=== PATIENT | male | born 1950 | race Caucasian/White ===

== ENCOUNTER 2019-03-06 05:08 | Inpatient (IN) | payer OTHER ==
[2019-02-18 14:31] LABS: BASOPHILS # (AUTO) 0.1 X10'3 (0-0.2); BASOPHILS % (AUTO) 1.3 % (0-1); EOSINOPHILS # (AUTO) 0.2 X10'3 (0-0.9); EOSINOPHILS % (AUTO) 3.2 % (0-6); LYMPHOCYTES % (AUTO) 25.5 % (21-51); MEAN CORPUSCULAR HEMOGLOBIN 31.6 PG (27.0-31.0); MEAN CORPUSCULAR HGB CONC 33.5 g/dL (33.0-36.5); MEAN CORPUSCULAR VOLUME 94.1 FL (78-98); MEAN PLATELET VOLUME 8.4 FL (7.4-10.4); MONOCYTES # (AUTO) 0.5 X10'3 (0-0.9); NEUTROPHILS # (AUTO) 4.9 X10'3 (1.8-7.7); PRE OP HEMATOCRIT 38.3 % (42.0-52.0); PRE OP HEMOGLOBIN 12.9 g/dL (14.0-17.9); PRE OP PLATELET COUNT 275 X10'3 (140-440); RED BLOOD COUNT 4.07 X10'6 (4.70-6.10); RED CELL DISTRIBUTION WIDTH 14.1 % (11.5-14.5)
[2019-02-18 14:47] LABS: ALBUMIN 3.7 G/DL (3.4-5.0); ALKALINE PHOSPHATASE 86 IU/L (46-116); BLOOD UREA NITROGEN 36 MG/DL (7-18); BUN/CREATININE RATIO 22.4 (5.4-32.0); CHLORIDE 109 MMOL/L (99-107); CREATININE 1.61 MG/DL (0.60-1.10); PRE OP ALT 26 U/L (30-65); PRE OP ANION GAP 10 (8-16); PRE OP AST 24 U/L (10-37); PRE OP BILIRUB, TOTAL 0.4 MG/DL (0.0-1.0); PRE OP GLUCOSE 98 MG/DL (70-104); PRE OP POTASSIUM 5.2 MMOL/L (3.4-5.1); PRE OP SODIUM 141 MMOL/L (135-145); TOTAL CARBON DIOXIDE 22.1 MMOL/L (24-32); TOTAL PROTEIN 7.3 G/DL (6.4-8.2); eGFR 43 ML/MIN
[2019-03-06] VITALS (17 sets, daily range): BP systolic 77–141; BP diastolic 33–80
[~2019-03-06] VITALS: Ht 182.9 cm; Wt 84.9 kg
[~2019-03-06 05:08] MED LIST: BENA10TA75 PO; IBUP-1984 PO; [UNRECOGNIZED DRUG - CODE]; ringers solution, lacted 1,000 ML IV SCH
[2019-03-06] MEDS ORDERED: vancomycin inj 1,500 MG in normal saline 300ml IV soln IV ONE (05:30)
[2019-03-06] MEDS ORDERED: clindamycin-Cleocin 900mg/D5W 50 ML IV ONE (05:30)
[2019-03-06] MEDS ORDERED: famotidine 20mg tablet PO ONE (05:30)
[2019-03-06] MEDS ORDERED: tranexamic acid inj. 1,000 MG in normal saline 100 ML IV ONE (05:30)
[2019-03-06] MEDS ORDERED: ketorolac trometh. 30mg/ml inj. ONE (06:40)
[2019-03-06] MEDS ORDERED: ROPIVAcaine 0.5% (5mg/ml) 30ml vial ONE ×2 (06:40→07:21)
[2019-03-06] MEDS ORDERED: ceFAZolin 1GM/D5W- ADD-VANTAGE 50 ML IV ONE (06:45)
[2019-03-06] MEDS ORDERED: fentaNYL/PF 50MCG/1 ML 2ML syringe ONE (07:18)
[2019-03-06] MEDS ORDERED: MIDAZolam 5mg/5ml vial ONE (07:19)
[2019-03-06] MEDS ORDERED: propofol inj 20 ML IV ONE (07:19)
[2019-03-06] MEDS ORDERED: dexamethasone sod phosphate 4mg/ml inj. ONE (07:22)
[2019-03-06 07:24] LABS: PRE OP PROTIME 10.1 SECONDS (9.0-12.0)
[2019-03-06] MEDS ORDERED: sevoflurane 250ml liquid IH ONE (07:30)
[2019-03-06] MEDS ORDERED: ceFAZolin 1000mg inj ONE (08:20)
[2019-03-06] MEDS ORDERED: tranexamic acid inj. 850 MG in normal saline 100ml IV soln 100 ML IV ONE ×2 (08:40→13:15)
[2019-03-06] MEDS ORDERED: ringers solution, lacted 1,000 ML IV SCH (09:05)
[2019-03-06] MEDS ORDERED: meperidine/PF 25mg/ml syringe IV PRN ×3 (09:05)
[2019-03-06] MEDS ORDERED: proCHLORperazine 10 MG/2 ml inj IV PRN (09:05)
[2019-03-06] MEDS ORDERED: ROPIVAcaine 0.2%/PF PUMP/bolus 550 ML INTERSCALE SCH (09:05)
[2019-03-06] MEDS ORDERED: ondansetron/PF 4mg/2ml inj IV PRN ×2 (09:05→10:05)
[2019-03-06] MEDS ORDERED: ROPIVAcaine 0.2% (10 MG/5 ML) BOLUS INJECTION INTERSCALE PRN (09:05)
[2019-03-06] MEDS ORDERED: morphine 4 MG/ML inj SYRINge IV PRN ×2 (09:05)
[2019-03-06] MEDS ORDERED: ondansetron/PF 4mg/2ml inj ONE (09:29)
--- NOTE | 2019-03-06 09:52 | NUR ---
Received from OR via , accompanied by Anesthesiologist DR SHULTZ and report given by Anesthesiolgist. AWAKENS TO VOICE. VITALS STABLE. DRESSING DI. BARBARA PAIN. FINGERS WARM AND PINK. RUE IN SIMPLE SLING.
[2019-03-06] MEDS ORDERED: HYDROmorphone 1 mg/ml syringe IV PRN (10:05)
[2019-03-06] MEDS ORDERED: diphenhydrAMINE 25mg capsule PO PRN ×2 (10:05)
[2019-03-06] MEDS ORDERED: oxyCODONE IR 5mg (immed. release) tablet PO PRN (10:05)
[2019-03-06] MEDS ORDERED: magnesium hydroxide 30ml (MOM) UD suspension PO PRN (10:05)
[2019-03-06] MEDS ORDERED: HYDROmorphone inj. 0.5 MG/0.5 ML DISP.SYRIN IV PRN (10:05)
[2019-03-06] MEDS ORDERED: bisacodyl 10mg suppository rectal RC PRN (10:05)
[2019-03-06] MEDS ORDERED: acetaminophen 325mg tablet PO PRN (10:05)
[2019-03-06] MEDS ORDERED: [UNRECOGNIZED DRUG - CODE] IV (10:15)
--- NOTE | 2019-03-06 10:42 | NUR ---
Report called to receiving nurse. Transferred via BED Belongings . Special Issues communicated to receiving nurse. AWAKE AND ORIENTED. VITALS STABLE. DRESSING DI. BARBARA PAIN. TO ORTHO RM 4017 AT THIS TIME.
[2019-03-06] MEDS: potassium cl 20mEq in 1/2 NS 1,000 ML IV SCH ×2 (11:37→23:00)
[2019-03-06] MEDS: acetaminophen 325mg tablet PO SCH ×2 (13:04→20:29)
[2019-03-06] MEDS: ceFAZolin 1GM/D5W- ADD-VANTAGE 50 ML IV SCH (16:40)
--- NOTE | 2019-03-06 18:17 | NUR ---
Problems reprioritized. Patient report given, questions answered & plan of care reviewed with Nicole STARKS.
--- NOTE | 2019-03-06 18:35 | NUR ---
Patient in room ORTHO 4017. I have received report from Aye STARKS and had the opportunity to ask questions and assume patient care.
[2019-03-06] MEDS ORDERED: vancomycin/NS 1 GM ADD-VANTAGE 250 ML IV SCH (20:00)
[2019-03-06] MEDS: sennosides 8.6mg tablet PO SCH (20:30)
[2019-03-07] MEDS: ceFAZolin 1GM/D5W- ADD-VANTAGE 50 ML IV SCH (00:04)
[2019-03-07 02:00] VITALS: BP 103/52
[2019-03-07] MEDS: acetaminophen 325mg tablet PO SCH ×4 (02:00→20:25)
[2019-03-07 05:21] LABS: BASOPHILS % (AUTO) 0.1 % (0-1); EOSINOPHILS % (AUTO) 0 % (0-6); HEMATOCRIT 32.4 % (42.0-52.0); HEMOGLOBIN 10.9 g/dl (14.0-17.9); LYMPHOCYTES # (AUTO) 0.9 X10'3 (1.1-4.8); LYMPHOCYTES % (AUTO) 5.4 % (21-51); MEAN CORPUSCULAR HGB CONC 33.7 g/dL (33.0-36.5); MEAN CORPUSCULAR VOLUME 95.1 FL (78-98); MONOCYTES # (AUTO) 0.6 X10'3 (0-0.9); MONOCYTES % (AUTO) 3.8 % (2-12); NEUTROPHILS # (AUTO) 15.1 X10'3 (1.8-7.7); NEUTROPHILS % (AUTO) 90.7 % (42-75); PLATELET COUNT 185 X10'3 (140-440); RED BLOOD COUNT 3.41 X10'6 (4.70-6.10); WHITE BLOOD COUNT 16.6 X10'3 (4.5-11.0)
[2019-03-07 05:30] LABS: ANION GAP 6 (8-16); CHLORIDE 106 MMOL/L (99-107); SODIUM 133 MMOL/L (135-145); TOTAL CARBON DIOXIDE 20.6 MMOL/L (24-32)
[2019-03-07 06:00] VITALS: BP 103/47
[2019-03-07] MEDS: normal saline 1000ml 1,000 ML IV SCH ×2 (06:03→18:38)
--- NOTE | 2019-03-07 06:44 | NUR ---
Problems reprioritized. Patient report given, questions answered & plan of care reviewed with Aye STARKS.
[2019-03-07] MEDS: aspirin 325mg tablet PO SCH (07:50)
[2019-03-07] MEDS: lisinopril 10 MG tablet PO SCH (07:52)
[2019-03-07 10:00] VITALS: BP 111/55
[2019-03-07] MEDS: oxyCODONE IR 5mg (immed. release) tablet PO PRN ×2 (14:57→21:03)
[2019-03-07 18:00] VITALS: BP 111/58
--- NOTE | 2019-03-07 18:16 | NUR ---
Problems reprioritized. Patient report given, questions answered & plan of care reviewed with Nicole STARKS.
--- NOTE | 2019-03-07 18:32 | NUR ---
Patient in room ORTHO 4017. I have received report from Aye STARKS and had the opportunity to ask questions and assume patient care.
[2019-03-07] MEDS: sennosides 8.6mg tablet PO SCH (20:24)
[2019-03-07 22:00] VITALS: BP 109/61
[2019-03-08] MEDS: oxyCODONE IR 5mg (immed. release) tablet PO PRN ×2 (02:38→07:52)
[2019-03-08] MEDS: acetaminophen 325mg tablet PO SCH ×2 (02:42→07:53)
[2019-03-08 06:00] VITALS: BP 119/73
--- NOTE | 2019-03-08 06:08 | NUR ---
Problems reprioritized. Patient report given, questions answered & plan of care reviewed with ELIZABETH STARKS.
--- NOTE | 2019-03-08 06:09 | NUR ---
received report from mack hu
[2019-03-08 07:39] LABS: BASOPHILS # (AUTO) 0.1 X10'3 (0-0.2); BASOPHILS % (AUTO) 0.9 % (0-1); EOSINOPHILS # (AUTO) 0.2 X10'3 (0-0.9); EOSINOPHILS % (AUTO) 1.5 % (0-6); HEMATOCRIT 33.9 % (42.0-52.0); HEMOGLOBIN 11.5 g/dl (14.0-17.9); LYMPHOCYTES # (AUTO) 2.7 X10'3 (1.1-4.8); LYMPHOCYTES % (AUTO) 24.7 % (21-51); MEAN CORPUSCULAR HGB CONC 33.9 g/dL (33.0-36.5); MEAN CORPUSCULAR VOLUME 94.3 FL (78-98); MEAN PLATELET VOLUME 8.9 FL (7.4-10.4); MONOCYTES # (AUTO) 0.8 X10'3 (0-0.9); MONOCYTES % (AUTO) 7.8 % (2-12); NEUTROPHILS # (AUTO) 7.1 X10'3 (1.8-7.7); NEUTROPHILS % (AUTO) 65.1 % (42-75); PLATELET COUNT 208 X10'3 (140-440); RED CELL DISTRIBUTION WIDTH 14.4 % (11.5-14.5); WHITE BLOOD COUNT 10.9 X10'3 (4.5-11.0)
[2019-03-08 07:49] LABS: ALBUMIN 2.9 G/DL (3.4-5.0); ANION GAP 8 (8-16); BLOOD UREA NITROGEN 36 MG/DL (7-18); BUN/CREATININE RATIO 21.6 (5.4-32.0); CALCIUM 8.1 MG/DL (8.5-10.1); CHLORIDE 110 MMOL/L (99-107); CREATININE 1.67 MG/DL (0.60-1.10); GLUCOSE 79 MG/DL (70-104); POTASSIUM 4.8 MMOL/L (3.5-5.1); SODIUM 141 MMOL/L (135-145); TOTAL CARBON DIOXIDE 23.5 MMOL/L (24-32); eGFR 41 ML/MIN
[2019-03-08] MEDS: aspirin 325mg tablet PO SCH (07:53)
[2019-03-08] MEDS: lisinopril 10 MG tablet PO SCH (07:53)
[2019-03-08 10:00] VITALS: BP 100/67
[2019-03-08] MEDS ORDERED: acetaminophen 325mg tablet PO PRN (10:05)
--- NOTE | 2019-03-08 10:07 | NUR ---
PT D/C WITH INSTRUCTIONS, UNDERSTANDING OF INSTRUCTIONS, AND W/ALL BELONGINGS, ACCOMPANIED BY FAM MEMBER WALKING OUT TO PRIVATE VEHICLE TO GO HOME AND F/U PCP
== END 2019-03-08 10:05 | disposition home or self-care (01) | DRG 483 ==
LOC: PAS IN 05:08 → EDSTATUS 07:30 → ORTHO 4S 10:45
PROVIDERS: ADMIT Orthopaedic Surgery; ATTEND Orthopaedic Surgery
PROC: 3E0T3BZ Introduction of Anesthetic Agent into Peripheral Nerves and Plexi, Percutaneous Approach (ICD-10-PCS; 2019-03-06)
PROC: 0RRJ00Z Replacement of Right Shoulder Joint with Reverse Ball and Socket Synthetic Substitute, Open Approach (ICD-10-PCS; principal; 2019-03-06 07:26)
DX: M19.011 Primary osteoarthritis, right shoulder (principal); M75.101 Unspecified rotator cuff tear or rupture of right shoulder, not specified as traumatic; Z79.899 Other long term (current) drug therapy; Z88.0 Allergy status to penicillin; G89.29 Other chronic pain; Z87.440 Personal history of urinary (tract) infections
CPT/HCPCS: 36415; 80048; 80051; 80053; 82948; 85025; 85610; 85730; 87081; 97161; 97530; A4565; A4618; A7000; C1776; G0378; J0690; J1100; J1885; J2250; J2405; J2704; J2795; J3010; J3370; J3480; J3490; J7030; J7120